=== PATIENT | female | born 1970 | race Caucasian/White ===

== ENCOUNTER 2025-07-25 10:47 | Outpatient (CLI) | payer OTHER | END 2025-07-25 10:51 | disposition home or self-care (01) | LOC: SONOGRAMA 10:47 | PROVIDERS: ATTEND Pathology Anatomic Pathology & Clinical Pathology | DX: R59.0 Localized enlarged lymph nodes (principal); N63.32 Unspecified lump in axillary tail of the left breast; C50.212 Malignant neoplasm of upper-inner quadrant of left female breast ==